=== PATIENT | male | born 1990 | race Caucasian/White ===

== ENCOUNTER 2022-11-12 00:28 | Emergency (ER) | payer OTHER ==
--- OUTSIDE RECORDS SUMMARY | 2022-11-12 00:33 | XMS REPORT | Continuity of Care Document ---
:1990 Author Organization [facility] t Address [address] [place] [address] [place] [id number] Care Team Providers Name Role Phone [email or web address] Attending Clinician Unavailable TXO_A_Physician Attending Clinician Unavailable Bryce Butler Attending Clinician [phone] [email or web address] Admitting Clinician Unavailable TXO_A_Physician Admitting Clinician Unavailable Payers Payer Name Policy Type Policy Number Effective Date Expiration Date Goldie mcintyre [employer] (EPO) [id number] 2021 2023 00:00:0 0 00:00:00 Problems This patient has no known problems. Allergies, Adverse Reactions, Alerts Allergy Allergy Status Severity Reaction(s) Onset Inactive Treating Comm ents Source Name Type Date Date Clinician Diflupre Allergy Active [facility] dn[facility] to Medical substanc e Hydroxyc Allergy Active [facility] hloroqui to Medical ne substanc e Social History Smoking Status Start Date Stop Date Source Never Smoker [facility] Medications Ordered Filled Start Stop Current Ordering Indication Dosage Frequency Signature Comments Components Source Medication Medication Date Date Medication? Clinician (SIG) Name Name naproxen naproxen 2021-04 No naproxen A zale[facility] 500 mg 500 mg 0-24 500 mg [facility] tablet 1 tablet 1 00:00: tablet 1 d ic TAB PO BID TAB PO BID 00 TAB PO BID Sports PRN PRN PRN Medicin e meloxicam meloxicam No meloxicam [place] 15 mg 15 mg 6-20 15 mg [facility] tablet 1 tablet 1 00:00: tablet 1 d ic TAB PO TAB PO 00 TAB PO Sports QDAILY PRN QDAILY PRN QDAILY PRN Medicin PAIN PAIN PAIN e ketoconazol ketoconazol No ketoconazo [facility] e 2 % e 2 % le 2 % Medical shampoo shampoo shampoo LATHER ONTO LATHER ONTO LATHER AFFECTED AFFECTED ONTO AREAS ON AREAS ON AFFECTED SCALP 3-5 SCALP 3-5 AREAS ON TIMES TIMES SCALP 3-5 WEEKLY, LET WEEKLY, LET TIMES SIT FOR 5 SIT FOR 5 WEEKLY, MINUTES MINUTES LET SIT BEFORE BEFORE FOR 5 RINSING, RINSING, MINUTES FOLLOWED BY FOLLOWED BY BEFORE CONDITIONER CONDITIONER RINSING, IF NEEDED. IF NEEDED. FOLLOWED BY CONDITIONE R IF NEEDED. ketoconazol ketoconazol No ketoconazo [facility] e 2 % e 2 % le 2 % Medical topical topical topical cream APPLY cream APPLY cream TWICE DAILY TWICE DAILY APPLY TO FLAKY, TO FLAKY, TWICE ITCHY AREAS ITCHY AREAS DAILY TO ON FACE AND ON FACE AND FLAKY, EARS FOR 1 EARS FOR 1 ITCHY MONTH OR MONTH OR AREAS ON UNTIL UNTIL FACE AND RESOLVED. RESOLVED. EARS FOR 1 MONTH OR UNTIL RESOLVED. naproxen naproxen No naproxen [place] via 500 mg 500 mg 500 mg Medical tablet TAKE tablet TAKE tablet ONE (1) ONE (1) TAKE ONE TABLET(S) TABLET(S) (1) BY MOUTH BY MOUTH TABLET(S) TWICE A DAY TWICE A DAY BY MOUTH NEEDED. NEEDED. TWICE A DAY NEEDED. sertraline sertraline No sertraline [facility] 100 mg 100 mg 100 mg Medical tablet TAKE tablet TAKE tablet ONE (1) ONE (1) TAKE ONE TABLET(S) TABLET(S) (1) BY MOUTH BY MOUTH TABLET(S) DAILY IN DAILY IN BY MOUTH THE THE DAILY IN MORNING. MORNING. THE MORNING. trazodone trazodone No trazodone [facility] 50 mg 50 mg 50 mg Medical tablet TAKE tablet TAKE tablet 1/2 TO 2 1/2 TO 2 TAKE 1/2 TABLET BY TABLET BY TO 2 MOUTH EVERY MOUTH EVERY TABLET BY NIGHT NIGHT MOUTH NEEDED FOR NEEDED FOR EVERY INSOMNIA. INSOMNIA. NIGHT NEEDED FOR INSOMNIA. ergocalcife ergocalcife No ergocalcif [facility] (vitamin (vitamin (vitamin D2) 1,250 D2) 1,250 D2) 1,250 mcg (50,000 mcg (50,000 mcg unit) unit) (50,000 capsule capsule unit) TAKE 1 TAKE 1 capsule CAPSULE CAPSULE TAKE 1 (1.25 MG) (1.25 MG) CAPSULE BY MOUTH BY MOUTH (1.25 MG) TWICE A TWICE A BY MOUTH WEEK, ON WEEK, ON TWICE A MONDAYS AND MONDAYS AND WEEK, ON FRIDAYS X FRIDAYS X MONDAYS 12 WEEKS 12 WEEKS AND FRIDAYS X 12 WEEKS gabapentin gabapentin No gabapentin [facility] 100 mg 100 mg 100 mg Medical capsule capsule capsule TAKE ONE TAKE ONE TAKE ONE (1) (1) (1) CAPSULE(S) CAPSULE(S) CAPSULE(S) BY MOUTH AT BY MOUTH AT BY MOUTH BEDTIME. BEDTIME. AT BEDTIME. ketoconazol ketoconazol No ketoconazo [facility] e 2 % e 2 % le 2 % Medical shampoo shampoo shampoo LATHER ONTO LATHER ONTO LATHER AFFECTED AFFECTED ONTO AREAS ON AREAS ON AFFECTED SCALP 3-5 SCALP 3-5 AREAS ON TIMES TIMES SCALP 3-5 WEEKLY, LET WEEKLY, LET TIMES SIT FOR 5 SIT FOR 5 WEEKLY, MINUTES MINUTES LET SIT BEFORE BEFORE FOR 5 RINSING, RINSING, MINUTES FOLLOWED BY FOLLOWED BY BEFORE CONDITIONER CONDITIONER RINSING, IF NEEDED. IF NEEDED. FOLLOWED BY CONDITIONE R IF NEEDED. ketoconazol ketoconazol No ketoconazo [facility] e 2 % e 2 % le 2 % Medical topical topical topical cream APPLY cream APPLY cream TWICE DAILY TWICE DAILY APPLY TO FLAKY, TO FLAKY, TWICE ITCHY AREAS ITCHY AREAS DAILY TO ON FACE AND ON FACE AND FLAKY, EARS FOR 1 EARS FOR 1 ITCHY MONTH OR MONTH OR AREAS ON UNTIL UNTIL FACE AND RESOLVED. RESOLVED. EARS FOR 1 MONTH OR UNTIL RESOLVED. naproxen naproxen No naproxen [place] via 500 mg 500 mg 500 mg Medical tablet 1 tablet 1 tablet 1 TAB PO BID TAB PO BID TAB PO BID PRN PRN PRN sertraline sertraline No sertraline [facility] 50 mg 50 mg 50 mg Medical tablet TAKE tablet TAKE tablet ONE (1) ONE (1) TAKE ONE TABLET(S) TABLET(S) (1) BY MOUTH BY MOUTH TABLET(S) ONCE A DAY ONCE A DAY BY MOUTH (IN THE (IN THE ONCE A DAY MORNING) MORNING) (IN THE FOR 2 FOR 2 MORNING) WEEKS, THEN WEEKS, THEN FOR 2 TWO (2) TWO (2) WEEKS, TABLET(S) TABLET(S) THEN TWO ONCE A DAY ONCE A DAY (2) (IN THE (IN THE TABLET(S) MORNING). MORNING). ONCE A DAY (IN THE MORNING). bupropion bupropion No bupropion [facility] HCl XL 150 HCl XL 150 HCl XL 150 Medical mg 24 hr mg 24 hr mg 24 hr tablet, tablet, tablet, extended extended extended release release release TAKE ONE TAKE ONE TAKE ONE (1) (1) (1) TABLET(S) TABLET(S) TABLET(S) BY MOUTH BY MOUTH BY MOUTH ONCE A DAY ONCE A DAY ONCE A DAY IN THE IN THE IN THE MORNING. MORNING. MORNING. cefuroxime cefuroxime No 1 Q12H cefuroxime [facility] axetil 500 axetil 500 axetil 500 Medical mg tablet mg tablet mg tablet Take 1 Take 1 Take 1 tablet tablet tablet every 12 every 12 every 12 hours by hours by hours by oral route. oral route. oral route. clobetasol clobetasol No clobetasol [facility] 0.05 % 0.05 % 0.05 % Medical shampoo shampoo shampoo APPLY APPLY APPLY TOPICALLY TOPICALLY TOPICALLY ONCE A DAY ONCE A DAY ONCE A DAY FOR 5 DAYS FOR 5 DAYS FOR 5 DAYS duloxetine duloxetine No duloxetine [facility] 20 mg 20 mg 20 mg Medical capsule,del capsule,del capsule,de ayed ayed layed release release release TAKE 1 TAKE 1 TAKE 1 CAPSULE BY CAPSULE BY CAPSULE BY MOUTH EVERY MOUTH EVERY MOUTH DAY FOR 2 DAY FOR 2 EVERY DAY WEEKS THEN WEEKS THEN FOR 2 TAKE 2 TAKE 2 WEEKS THEN CAPSULES CAPSULES TAKE 2 DAILY DAILY CAPSULES DAILY duloxetine duloxetine No duloxetine [facility] 60 mg 60 mg 60 mg Medical capsule,del capsule,del capsule,de ayed ayed layed release release release TAKE ONE TAKE ONE TAKE ONE (1) (1) (1) CAPSULE(S) CAPSULE(S) CAPSULE(S) BY MOUTH BY MOUTH BY MOUTH ONCE A DAY. ONCE A DAY. ONCE A DAY. ergocalcife ergocalcife No ergocalcif [facility] (vitamin (vitamin (vitamin D2) 1,250 D2) 1,250 D2) 1,250 mcg (50,000 mcg (50,000 mcg unit) unit) (50,000 capsule capsule unit) TAKE 1 TAKE 1 capsule CAPSULE CAPSULE TAKE 1 (1.25 MG) (1.25 MG) CAPSULE BY MOUTH BY MOUTH (1.25 MG) TWICE A TWICE A BY MOUTH WEEK, ON , ON TWICE A MONDAYS AND MONDAYS AND WEEK, ON FRIDAYS X FRIDAYS X MONDAYS 12 WEEKS 12 WEEKS AND FRIDAYS X WEEKS famotidine famotidine No famotidine [facility] 40 mg 40 mg 40 mg Medical tablet TAKE tablet TAKE tablet 1 TABLET BY 1 TABLET BY TAKE 1 MOUTH MOUTH TABLET BY EVERYDAY AT EVERYDAY AT MOUTH BEDTIME BEDTIME EVERYDAY AT BEDTIME gabapentin gabapentin No gabapentin [facility] 100 mg 100 mg 100 mg Medical capsule capsule capsule PLEASE SEE PLEASE SEE PLEASE SEE ATTACHED ATTACHED ATTACHED FOR FOR FOR DETAILED DETAILED DETAILED DIRECTIONS DIRECTIONS DIRECTIONS hydroxychlo hydroxychlo No hydroxychl [facility] roquine 200 roquine 200 oroquine Medical mg tablet mg tablet 200 mg TAKE 1/2 A TAKE 1/2 A tablet TABLET TABLET TAKE 1/2 A DAILY FOR 1 DAILY FOR 1 TABLET WEEK, THEN WEEK, THEN DAILY FOR 1 TABLET 1 TABLET 1 WEEK, DAILY FOR 1 DAILY FOR 1 THEN 1 WEEK, THEN WEEK, THEN TABLET 1 TABLET 1 TABLET DAILY FOR TWICE DAILY TWICE DAILY 1 WEEK, THEN 1 TABLET TWICE DAILY hydroxyzine hydroxyzine No hydroxyzin [facility] HCl 25 mg HCl 25 mg e HCl 25 M edical tablet TAKE tablet TAKE mg tablet 1 TABLET BY 1 TABLET BY TAKE 1 ORAL ROUTE ORAL ROUTE TABLET BY EVERY 8 EVERY 8 ORAL ROUTE HOURS HOURS EVERY 8 NEEDED FOR NEEDED FOR HOURS ITCHING ITCHING NEEDED FOR ITCHING ketoconazol ketoconazol No ketoconazo [facility] e 2 % e 2 % le 2 % Medical shampoo shampoo shampoo APPLY 5 MLS APPLY 5 MLS APPLY 5 TO SCALP TO SCALP MLS TO DIRECTED, DIRECTED, SCALP LEAVE ON LEAVE ON DIRECTED, FOR 5 FOR 5 LEAVE ON MINUTES AND MINUTES AND FOR 5 RINSE, UASE RINSE, UASE MINUTES TWICE A TWICE A AND RINSE, WEEK WEEK UASE TWICE A WEEK meloxicam meloxicam No meloxicam [facility] 15 mg 15 mg 15 mg Medical tablet 1 tablet 1 tablet 1 TAB PO TAB PO TAB PO QDAILY PRN QDAILY PRN QDAILY PRN PAIN PAIN PAIN ondansetron ondansetron No ondansetro [facility] 4 mg 4 mg n 4 mg Medical disintegrat disintegrat disintegra ing tablet ing tablet ting DISOLVE 1 DISOLVE 1 tablet TABLET (4 TABLET (4 DISOLVE 1 MG TOTAL) MG TOTAL) TABLET (4 IN MOUTH IN MOUTH MG TOTAL) EVERY 6 EVERY 6 IN MOUTH (SIX) HOURS (SIX) HOURS EVERY 6 NEEDED NEEDED (SIX) FOR NAUSEA FOR NAUSEA HOURS OR VOMITING OR VOMITING NEEDED FOR NAUSEA OR VOMITING bupropion bupropion No bupropion [facility] HCl XL 300 HCl XL 300 HCl XL 300 Medical mg 24 hr mg 24 hr mg 24 hr tablet, tablet, tablet, extended extended extended release release release TAKE 1 ONCE TAKE 1 ONCE TAKE 1 A DAY (IN A DAY (IN ONCE A DAY THE THE (IN THE MORNING) MORNING) MORNING) duloxetine duloxetine No duloxetine [facility] 60 mg 60 mg 60 mg Medical capsule,del capsule,del capsule,de ayed ayed layed release release release TAKE ONE TAKE ONE TAKE ONE (1) (1) (1) CAPSULE(S) CAPSULE(S) CAPSULE(S) BY MOUTH BY MOUTH BY MOUTH ONCE A DAY. ONCE A DAY. ONCE A DAY. ergocalcife ergocalcife No ergocalcif [facility] (vitamin (vitamin (vitamin D2) 1,250 D2) 1,250 D2) 1,250 mcg (50,000 mcg (50,000 mcg unit) unit) (50,000 capsule capsule unit) TAKE 1 TAKE 1 capsule CAPSULE CAPSULE TAKE 1 (1.25 MG) (1.25 MG) CAPSULE BY MOUTH BY MOUTH (1.25 MG) TWICE A TWICE A BY MOUTH WEEK, ON , ON A MONDAYS AND MONDAYS AND WEEK, ON FRIDAYS X FRIDAYS X MONDAYS 12 WEEKS 12 WEEKS AND FRIDAYS X 12 WEEKS indomethaci indomethaci No indomethac [facility] n ER 75 mg n ER 75 mg in ER 75 Medical capsule,ext capsule,ext mg ended ended capsule,ex release 1 release 1 tended CAPSULE PO CAPSULE PO release 1 BID PRN BID PRN CAPSULE PO BID PRN meloxicam meloxicam No meloxicam [facility] 15 mg 15 mg 15 mg Medical tablet 1 tablet 1 tablet 1 TAB PO TAB PO TAB PO QDAILY PRN QDAILY PRN QDAILY PRN PAIN PAIN PAIN bupropion bupropion No bupropion [facility] HCl XL 150 HCl XL 150 HCl XL 150 Medical mg 24 hr mg 24 hr mg 24 hr tablet, tablet, tablet, extended extended extended release release release TAKE ONE TAKE ONE TAKE ONE (1) (1) (1) TABLET(S) TABLET(S) TABLET(S) BY MOUTH BY MOUTH BY MOUTH DAILY IN DAILY IN DAILY IN THE THE THE MORNING. MORNING. MORNING. ergocalcife ergocalcife No ergocalcif [facility] riley de diosol [facility] (vitamin (vitamin (vitamin D2) 1,250 D2) 1,250 D2) 1,250 mcg (50,000 mcg (50,000 mcg unit) unit) (50,000 capsule capsule unit) TAKE 1 TAKE 1 capsule CAPSULE CAPSULE TAKE 1 (1.25 MG) (1.25 MG) CAPSULE BY MOUTH BY MOUTH (1.25 MG) TWICE A TWICE A BY MOUTH WEEK, ON , ON TWICE A MONDAYS AND MONDAYS AND WEEK, ON FRIDAYS X FRIDAYS X MONDAYS 12 WEEKS 12 WEEKS AND FRIDAYS X WEEKS gabapentin gabapentin No gabapentin [facility] 100 mg 100 mg 100 mg Medical capsule capsule capsule TAKE ONE TAKE ONE TAKE ONE (1) (1) (1) CAPSULE(S) CAPSULE(S) CAPSULE(S) BY MOUTH AT BY MOUTH AT BY MOUTH BEDTIME. BEDTIME. AT BEDTIME. ketoconazol ketoconazol No ketoconazo [facility] e 2 % e 2 % le 2 % Medical shampoo shampoo shampoo LATHER ONTO LATHER ONTO LATHER AFFECTED AFFECTED ONTO AREAS ON AREAS ON AFFECTED SCALP 3-5 SCALP 3-5 AREAS ON TIMES TIMES SCALP 3-5 WEEKLY, LET WEEKLY, LET TIMES SIT FOR 5 SIT FOR 5 WEEKLY, MINUTES MINUTES LET SIT BEFORE BEFORE FOR 5 RINSING, RINSING, MINUTES FOLLOWED BY FOLLOWED BY BEFORE CONDITIONER CONDITIONER RINSING, IF NEEDED. IF NEEDED. FOLLOWED BY CONDITIONE R IF NEEDED. ketoconazol ketoconazol No ketoconazo [facility] e 2 % e 2 % le 2 % Medical topical topical topical cream APPLY cream APPLY cream TWICE DAILY TWICE DAILY APPLY TO FLAKY, TO FLAKY, TWICE ITCHY AREAS ITCHY AREAS DAILY TO ON FACE AND ON FACE AND FLAKY, EARS FOR 1 EARS FOR 1 ITCHY MONTH OR MONTH OR AREAS ON UNTIL UNTIL FACE AND RESOLVED. RESOLVED. EARS FOR 1 MONTH OR UNTIL RESOLVED. naproxen naproxen No naproxen [place] via 500 mg 500 mg 500 mg Medical tablet TAKE tablet TAKE tablet ONE (1) ONE (1) TAKE ONE TABLET(S) TABLET(S) (1) BY MOUTH BY MOUTH TABLET(S) TWICE A DAY TWICE A DAY BY MOUTH NEEDED. NEEDED. TWICE A DAY NEEDED. sertraline sertraline No sertraline [facility] 100 mg 100 mg 100 mg Medical tablet TAKE tablet TAKE tablet ONE (1) ONE (1) TAKE ONE TABLET(S) TABLET(S) (1) BY MOUTH BY MOUTH TABLET(S) DAILY IN DAILY IN BY MOUTH THE THE DAILY IN MORNING. MORNING. THE MORNING. bupropion bupropion No bupropion [place] HCl XL 300 HCl XL 300 HCl XL 300 [facility] mg 24 hr mg 24 hr mg 24 hr dic tablet, tablet, tablet, Sports extended extended extended Med icin release release release e TAKE 1 ONCE TAKE 1 ONCE TAKE 1 A DAY (IN A DAY (IN ONCE A DAY THE THE (IN THE MORNING) MORNING) MORNING) cefuroxime cefuroxime No cefuroxime [place] axetil 500 axetil 500 axetil 500 [facility] mg tablet mg tablet mg tablet dic TAKE ONE TAKE ONE TAKE ONE Spo rts (1) TABLET (1) TABLET (1) TABLET Medicin BY MOUTH BY MOUTH BY MOUTH e EVERY 12 EVERY 12 EVERY 12 HOURS. HOURS. HOURS. duloxetine duloxetine No duloxetine [place] 60 mg 60 mg 60 mg [facility] capsule,del capsule,del capsule,de dic ayed ayed layed Sports release release release Medici n TAKE ONE TAKE ONE TAKE ONE e (1) (1) (1) CAPSULE(S) CAPSULE(S) CAPSULE(S) BY MOUTH BY MOUTH BY MOUTH ONCE A DAY. ONCE A DAY. ONCE A DAY. ergocalcife ergocalcife No ergocalcif [place] rol rol lana [facility] (vitamin (vitamin (vitamin dic D2) 1,250 D2) 1,250 D2) 1,250 Sports mcg (50,000 mcg (50,000 mcg M edicin unit) unit) (50,000 e capsule capsule unit) TAKE 1 TAKE 1 capsule CAPSULE CAPSULE TAKE 1 (1.25 MG) (1.25 MG) CAPSULE BY MOUTH BY MOUTH (1.25 MG) TWICE A TWICE A BY MOUTH WEEK, ON WEEK, ON TWICE A MONDAYS AND MONDAYS AND WEEK, ON FRIDAYS X FRIDAYS X MONDAYS 12 WEEKS 12 WEEKS AND FRIDAYS X 12 WEEKS gabapentin gabapentin No gabapentin [place] 100 mg 100 mg 100 mg [facility] capsule capsule capsule dic TAKE ONE TAKE ONE TAKE ONE Spo rts (1) (1) (1) Medicin CAPSULE(S) CAPSULE(S) CAPSULE(S) e BY MOUTH AT BY MOUTH AT BY MOUTH BEDTIME. BEDTIME. AT BEDTIME. indomethaci indomethaci No indomethac [place] n ER 75 mg n ER 75 mg in ER 75 [facility] capsule,ext capsule,ext mg d ic ended ended capsule,ex Sports release release tended Medicin Take by Take by release e oral route oral route Take by for 30 for 30 oral route days. days. for 30 days. ketoconazol ketoconazol No ketoconazo [place] e 2 % e 2 % le 2 % [facility] shampoo shampoo shampoo dic LATHER ONTO LATHER ONTO LATHER Sports AFFECTED AFFECTED ONTO Medicin AREAS ON AREAS ON AFFECTED e SCALP 3-5 SCALP 3-5 AREAS ON TIMES TIMES SCALP 3-5 WEEKLY, LET WEEKLY, LET TIMES SIT FOR 5 SIT FOR 5 WEEKLY, MINUTES MINUTES LET SIT BEFORE BEFORE FOR 5 RINSING, RINSING, MINUTES FOLLOWED BY FOLLOWED BY BEFORE CONDITIONER CONDITIONER RINSING, IF NEEDED. IF NEEDED. FOLLOWED BY CONDITIONE R IF NEEDED. ketoconazol ketoconazol No ketoconazo [place] e 2 % e 2 % le 2 % [facility] topical topical topical dic cream APPLY cream APPLY cream Sports TWICE DAILY TWICE DAILY APPLY Medicin TO FLAKY, TO FLAKY, TWICE e ITCHY AREAS ITCHY AREAS DAILY TO ON FACE AND ON FACE AND FLAKY, EARS FOR 1 EARS FOR 1 ITCHY MONTH OR MONTH OR AREAS ON UNTIL UNTIL FACE AND RESOLVED. RESOLVED. EARS FOR 1 MONTH OR UNTIL RESOLVED. piroxicam piroxicam No piroxicam [place] 20 mg 20 mg 20 mg [facility] capsule capsule capsule dic TAKE ONE TAKE ONE TAKE ONE Spo rts (1) (1) (1) Medicin CAPSULE(S) CAPSULE(S) CAPSULE(S) e BY MOUTH BY MOUTH BY MOUTH DAILY DAILY DAILY NEEDED. NEEDED. NEEDED. sertraline sertraline No sertraline [place] 50 mg 50 mg 50 mg [facility] tablet TAKE tablet TAKE tablet dic ONE (1) ONE (1) TAKE ONE Sport s TABLET(S) TABLET(S) (1) Medic in BY MOUTH BY MOUTH TABLET(S) e ONCE A DAY ONCE A DAY BY MOUTH (IN THE (IN THE ONCE A DAY MORNING) MORNING) (IN THE FOR 2 FOR 2 MORNING) WEEKS, THEN WEEKS, THEN FOR 2 TWO (2) TWO (2) WEEKS, TABLET(S) TABLET(S) THEN TWO ONCE A DAY ONCE A DAY (2) (IN THE (IN THE TABLET(S) MORNING). MORNING). ONCE A DAY (IN THE MORNING). sertraline sertraline No sertraline [facility] 50 mg 50 mg 50 mg Medical tablet TAKE tablet TAKE tablet ONE (1) ONE (1) TAKE ONE TABLET(S) TABLET(S) (1) BY MOUTH BY MOUTH TABLET(S) ONCE A DAY ONCE A DAY BY MOUTH (IN THE (IN THE ONCE A DAY MORNING) MORNING) (IN THE FOR 2 FOR 2 MORNING) WEEKS, THEN WEEKS, THEN FOR 2 TWO (2) TWO (2) WEEKS, TABLET(S) TABLET(S) THEN TWO ONCE A DAY ONCE A DAY (2) (IN THE (IN THE TABLET(S) MORNING). MORNING). ONCE A DAY (IN THE MORNING). amitriptyli amitriptyli No 1 Q1D amitriptyl [facility] ne 10 mg ne 10 mg ine 10 mg Me dical tablet Take tablet Take tablet 1 tablet 1 tablet Take 1 every day every day tablet by oral by oral every day route at route at by oral bedtime for bedtime for route at 30 days. 30 days. bedtime for 30 days. bupropion bupropion No bupropion [facility] HCl XL 150 HCl XL 150 HCl XL 150 Medical mg 24 hr mg 24 hr mg 24 hr tablet, tablet, tablet, extended extended extended release release release TAKE ONE TAKE ONE TAKE ONE (1) (1) (1) TABLET(S) TABLET(S) TABLET(S) BY MOUTH BY MOUTH BY MOUTH DAILY IN DAILY IN DAILY IN THE THE THE MORNING. MORNING. MORNING. celecoxib celecoxib No celecoxib [facility] 200 mg 200 mg 200 mg Medical capsule capsule capsule TAKE ONE TAKE ONE TAKE ONE (1) (1) (1) CAPSULE(S) CAPSULE(S) CAPSULE(S) BY MOUTH BY MOUTH BY MOUTH TWICE A DAY TWICE A DAY TWICE A NEEDED. NEEDED. DAY NEEDED. ergocalcife ergocalcife No ergocalcif [facility] (vitamin (vitamin (vitamin D2) 1,250 D2) 1,250 D2) 1,250 mcg (50,000 mcg (50,000 mcg unit) unit) (50,000 capsule capsule unit) TAKE 1 TAKE 1 capsule CAPSULE CAPSULE TAKE 1 (1.25 MG) (1.25 MG) CAPSULE BY MOUTH BY MOUTH (1.25 MG) TWICE A TWICE A BY MOUTH WEEK, ON WEEK, ON TWICE A MONDAYS AND MONDAYS AND WEEK, ON FRIDAYS X FRIDAYS X MONDAYS 12 WEEKS 12 WEEKS AND FRIDAYS X 12 WEEKS Immunizations Ordered Filled Immunization Date Status Comments [facility] e Immunization Name Name COVID-19, mRNA, COVID-19, mRNA, 2020-08-10 Completed [facility] LNP-S, PF, 30 LNP-S, PF, 30 00:00:00 mcg/0.3 mL dose mcg/0.3 mL dose (Pfizer-BioNTech) (NXE-Easy-PointNTech) COVID-19, mRNA, COVID-19, mRNA, 2020-08-10 Completed [facility] LNP-S, PF, 30 LNP-S, PF, 30 00:00:00 mcg/0.3 mL dose mcg/0.3 mL dose (Pfizer-BioNTech) (NXE-BioNTech) COVID-19, mRNA, COVID-19, mRNA, 2020-08-10 Completed [facility] LNP-S, PF, 30 LNP-S, PF, 30 00:00:00 mcg/0.3 mL dose mcg/0.3 mL dose (Pfizer-BioNTech) (NXE-BioNTech) COVID-19, mRNA, COVID-19, mRNA, 2020-08-10 Completed [facility] LNP-S, PF, 30 LNP-S, PF, 30 00:00:00 mcg/0.3 mL dose mcg/0.3 mL dose (Pfizer-BioNTech) (NXE-BioNTech) COVID-19, mRNA, COVID-19, mRNA, 2020-08-10 Completed [facility] LNP-S, PF, 30 LNP-S, PF, 30 00:00:00 mcg/0.3 mL dose mcg/0.3 mL dose (Pfizer-BioNTech) (NXE-BioNTech) COVID-19, mRNA, COVID-19, mRNA, 2020-08-10 Completed [facility] LNP-S, PF, 30 LNP-S, PF, 30 00:00:00 Sports M edicine mcg/0.3 mL dose mcg/0.3 mL dose (Pfizer-BioNTech) (Pfizer-BioNTech) COVID-19, mRNA, COVID-19, mRNA, 2020-07-13 Completed [facility] LNP-S, PF, 30 LNP-S, PF, 30 00:00:00 mcg/0.3 mL dose mcg/0.3 mL dose (Pfizer-BioNTech) (Pfizer-BioNTech) COVID-19, mRNA, COVID-19, mRNA, 2020-07-13 Completed [facility] LNP-S, PF, 30 LNP-S, PF, 30 00:00:00 mcg/0.3 mL dose mcg/0.3 mL dose (Pfizer-BioNTech) (Pfizer-BioNTech) COVID-19, mRNA, COVID-19, mRNA, 2020-07-13 Completed [facility] LNP-S, PF, 30 LNP-S, PF, 30 00:00:00 mcg/0.3 mL dose mcg/0.3 mL dose (Pfizer-BioNTech) (Pfizer-BioNTech) COVID-19, mRNA, COVID-19, mRNA, 2020-07-13 Completed [facility] LNP-S, PF, 30 LNP-S, PF, 30 00:00:00 mcg/0.3 mL dose mcg/0.3 mL dose (Pfizer-BioNTech) (Pfizer-BioNTech) COVID-19, mRNA, COVID-19, mRNA, 2020-07-13 Completed [facility] LNP-S, PF, 30 LNP-S, PF, 30 00:00:00 mcg/0.3 mL dose mcg/0.3 mL dose (Pfizer-BioNTech) (Pfizer-BioNTech) COVID-19, mRNA, COVID-19, mRNA, 2020-07-13 Completed [facility] LNP-S, PF, 30 LNP-S, PF, 30 00:00:00 Sports M edicine mcg/0.3 mL dose mcg/0.3 mL dose (Pfizer-BioNTech) (Pfizer-BioNTech) Vital Signs Vital Name Observation Time Observation Value Comments Source BP Diastolic 2022-05-01 00:00:00 78 mm[Hg] [facility] Height 2022-05-01 00:00:00 66 [in_i] [facility] BMI (Body Mass 2022-05-01 00:00:00 43[facility]7 [facility] BP Systolic 2022-05-01 00:00:00 128 mm[Hg] [facility] Body Weight 2022-05-01 00:00:00 4336 [oz_av] [facility] BP Diastolic 2022-04-09 00:00:00 78 mm[Hg] [facility] Height 2022-04-09 00:00:00 66 [in_i] [facility] BMI (Body Mass 2022-04-09 00:00:00 43.3 kg/m2 [facility] BP Systolic 2022-04-09 00:00:00 124 mm[Hg] [facility] Body Weight 2022-04-09 00:00:00 4288 [oz_av] [facility] BP Diastolic 2022-02-25 00:00:00 91 mm[Hg] [facility] Height 2022-02-25 00:00:00 67 [in_i] [facility] BP Systolic 2022-02-25 00:00:00 125 mm[Hg] [facility] BP Diastolic 2022-01-27 00:00:00 82 mm[Hg] [facility] Height 2022-01-27 00:00:00 66 [in_i] [facility] BMI (Body Mass 2022-01-27 00:00:00 44.2 kg/m2 [facility] BP Systolic 2022-01-27 00:00:00 128 mm[Hg] [facility] Body Weight 2022-01-27 00:00:00 4384 [oz_av] [facility] BP Diastolic 2021-11-28 00:00:00 88 mm[Hg] [facility] Height 2021-11-28 00:00:00 66 [in_i] [facility] BMI (Body Mass 2021-11-28 00:00:00 44.1 kg/m2 [facility] BP Systolic 2021-11-28 00:00:00 132 mm[Hg] [facility] Body Weight 2021-11-28 00:00:00 4368 [oz_av] [facility] BP Diastolic 2021-09-23 00:00:00 82 mm[Hg] Becky Mcdonald edical Height 2021-09-23 00:00:00 66 [in_i] Becky Mcdonald edical BMI (Body Mass 2021-09-23 00:00:00 42.4 kg/m2 [facility] Medical Index) BP Systolic 2021-09-23 00:00:00 140 mm[Hg] Becky Mcdonald edical Body Weight 2021-09-23 00:00:00 4208 [oz_av] Becky Mcdonald edical Procedures This patient has no known procedures. Plan of Care Planned Activity Planned Date Details Comments Source Diagnostic Test 2022-02-25 [place] [facility] + expediter service order Ab, [facility] Pending 00:00:00 serum [code = [place] [facility] + expediter service order Ab, serum] Diagnostic Test 2022-02-25 [place] [facility], serum [code [facility] 00:[facility]:00 = [place] [facility], serum] [facility] Diagnostic Test 2022-02-25 VIKTOR (antinuclear [facility] 00:00:00 antibodies) screen, [facility] serum [code = [facility] (antinuclear antibodies) screen, serum] Diagnostic Test 2022-02-25 dsDNA Ab, serum [code [facility] 00:00:00 = dsDNA Ab, serum] Sports Me d[facility] Diagnostic Test 2022-02-25 C3 + C4 (complement), [facility] 00:00:00 serum [code = C3 + C4 [facility] (complement), serum] Diagnostic Test 2022-02-25 ssa Ab, serum [code = [facility] 00:00:00 [facility]sa Ab, serum] Sports Medici ne Diagnostic Test 2022-02-25 ESR (erythrocyte [facility] 00:00:00 sedimentation rate), Sports Medicine blood [code = ESR (erythrocyte sedimentation rate), blood] Diagnostic Test 2022-02-25 C-reactive protein, [facility] P[facility] 00:00:00 quantitative [code = Sports Medicine C-reactive protein, quantitative] Diagnostic Test 2022-02-25 CMP, serum or plasma [facility] Pending 00:00:00 [code = CMP, serum or Sports Medicine plasma] Diagnostic Test 2022-02-25 CBC w/ auto diff [code [facility] Pending 00:00:00 = CBC w/ auto diff] Sports M edicine Diagnostic Test 2022-02-25 rf (rheumatoid [place] [facility] Pending 00:00:00 factor), serum [code = Sport s Medicine rf (rheumatoid factor), serum] Diagnostic Test 2022-02-25 ccp (cyclic [place] [facility] Pending 00:00:00 citrullinated peptide) Sport s Medicine igg, serum [code = ccp (cyclic citrullinated peptide) igg, serum] Encounters Start End Encounter Admission Attending Care Care Encounter Source Date/Time Date/Time Type Type Clinicians Facility Department ID 2022-05-16 2022-05-16 Outpatient GC_SM_Pol [facility] PRIV [id number] [facility] 00:00:00 00:00:00 son_D [id number] Medica l 2022-05-01 2022-05-01 [facility] 00:00:00 00:00:00 Tanesha Butler Medic luz maria TORREZ: 160[address] [facility]_[place] [id number] Office , Ph. 2022-04-09 2022-04-09 [facility] 04 [facility] 00:00:00 00:00:00 Tanesha Butler MD: 160Andrés [facility] [id number] 123 Office , Ph. 2022-03-19 2022-03-19 Outpatient TXO_A_Physi AOSM AO [id number] [place] 00:00:00 00:00:00 ophelia [id number] Orthop e dic Sports Medicin e 2022-02-25 2022-02-25 Outpatient TXO_A_Physi AOSM AOSM [id number] [place] 00:00:00 00:00:00 ophelia [id number] Orthop e dic Sports Medicin e 2022-02-25 2022-02-25 Edis R AOSM [place] - Ortho [id number] [place] 00:00:00 00:00:00 Kimberli Rivas MD: [id number] [facility] [address], [place] [address] , Ph. [phone] 2022-02-07 2022-02-07 Outpatient GC_SMFM_Pol PRIV PRIV [id number] [facility] 00:00:00 00:00:00 son_D [id number] Medica l 2022-02-07 2022-02-07 Outpatient GC_SMFM_Pol PRIV PRIV [id number] [facility] 00:00:00 00:00:00 son_D [id number] Medica l 2022-02-07 2022-02-07 Outpatient GC_SMFM_Pol PRIV PRIV [id number] [facility] 00:00:00 00:00:00 son_D [id number] Medica l 2022-01-28 2022-01-28 Outpatient TXO_A_Physi AOSM AO [id number] [place] 00:00:00 00:00:00 ophelia [id number] Orthop e dic Sports Medicin e 2022-01-27 2022-01-27 Outpatient GC_SMFM_Pol PRIV PRIV [id number] [facility] 00:00:00 00:00:00 son_D [id number] Medica l 2022-01-27 2022-01-27 [facility] 24 [facility] 00:00:00 00:00:00 Tanesha Butler Manasa loera MD: [id number] GC_SMFM_[facility] [phone] [facility] Office , Ph. 2022-01-17 2022-01-17 Outpatient GC_SMFM_Pol PRIV PRIV [id number] [facility] 00:00:00 00:00:00 son_D [id number] Medica l 2021-12-21 2021-12-21 Outpatient GC_SMFM_Pol PRIV PRIV [id number] [facility] 00:00:00 00:00:00 son_D [id number] Medica l 2021-11-28 2021-11-28 Outpatient GC_SMFM_Pol PRIV PRIV [id number] [facility] 00:00:00 00:00:00 son_D [id number] Medica l 2021-11-28 2021-11-28 Outpatient [facility], PRIV PRIV [id number] 00:00:00 00:00:00 Bryce [id number] 2021-11-28 2021-11-28 Bry[facility] 00:00:00 00:00:00 [facility] - Medic luz maria MD: [id number] GC_SMFM_[facility], Office* [address] [place] [phone] , Ph. 2021-11-01 2021-11-01 Outpatient GC_SMFM_Pol PRIV PRIV [id number] [facility] 00:00:00 00:00:00 son_D [id number] Medica l 2021-10-24 2021-10-24 Outpatient GC_SMFM_Pol PRIV PRIV [id number] [facility] 01:29:00 01:29:00 son_D [id number] Medica l 2021-09-23 2021-09-23 Outpatient GC_SMFM_Pol PRIV PRIV [id number] [facility] 03:59:00 03:59:00 son_D [id number] Medica l 2021-09-23 2021-09-23 Bryce [facility] 20 [facility] 00:00:00 00:00:00 [facility] Medic luz maria MD: [id number] GC_SMFM_[facility], Office* [address] [place] [phone] , Ph. 2021-09-23 2021-09-23 Outpatient [facility], PRIV PRIV [id number] 00:00:00 00:00:00 Bryce [id number] 2021-09-04 2021-09-04 Outpatient GC_SMFM_Pol PRIV PRIV [id number] [facility] 03:47:00 03:47:00 son_D [id number] Medica l Results This patient has no known results.
[2022-11-12] MEDS ORDERED: MORPHINE 4 MG/ML SYR ONE (03:07)
[2022-11-12] MEDS ORDERED: ONDANSETRON 4 MG/2 ML VIAL ONE (03:07)
[2022-11-12 03:25] LABS: Hematocrit 45.4 % (39.6-49.0); Lymphocytes % 17.3 % (15.3-44.8); MCV 82.3 fL (80-100); Platelets 308 thou/uL (152-406); RBC Red Blood Cell Count 5.52 M/uL (4.33-5.43)
[2022-11-12 03:34] LABS: Urine Bilirubin NEGATIVE (Negative); Urine Blood Negative (Negative); Urine Clarity Clear (Clear); Urine Color Light-Yellow (Yellow); Urine Glucose NEGATIVE (Negative); Urine Protein NEGATIVE (Negative); Urine Urobilinogen Normal (Normal)
[2022-11-12 03:37] LABS: Albumin 3.5 g/dL (3.4-5.0); Bilirubin Total 0.4 mg/dL (0.2-1.0); Potassium 3.7 mEq/L (3.5-5.1); Protein, Total 7.7 g/dL (6.4-8.2)
--- NOTE | 2022-11-12 05:25 | EDPHYS ---
Physician Documentation [facility] Name: Daryl Booth Age: 32 yrs Sex: Male : 1990 Arrival Date: 11/12/2022 Time: 00:28 Bed 13 Private MD: ED Physician Orville Tobias HPI: 11/12 01:30 This 32 yrs old Male presents to ER via Ambulatory with complaints of Abdominal Pain, cp Possible Kidney Stone. 01:30 The patient presents with abdominal pain in the left upper quadrant. Onset: The cp symptoms/episode began/occurred 4 day(s) ago, and became worse today. The symptoms do not radiate. 05:05 Patient care was assumed from physician orthopedic assistant at 3 AM. . sp4 Historical: - Allergies: 00:53 difluprednate; pf1 00:53 Hydroxychloroquine; pf1 - PMHx: 00:53 Anxiety; Depressive disorder; chronic pain; autism; pf1 00:56 kidney stone; pf1 - PSHx: 00:53 None; pf1 - Immunization history:: Adult Immunizations up to date, Client reports receiving the 2nd dose of the Covid vaccine, Last tetanus immunization: > 10 years ago Flu vaccine is not up to date. - Social history:: Smoking status: Patient denies any tobacco usage or history of. Patient uses alcohol, only on a social basis. Patient/guardian denies using street drugs. ROS: 01:35 Constitutional: Negative for body aches, chills, fever, poor PO intake. cp 01:35 Eyes: Negative for injury, pain, redness, and discharge. cp 01:35 ENT: Negative for drainage from ear(s), ear pain, sore throat, difficulty swallowing, difficulty handling secretions. 01:35 Cardiovascular: Negative for chest pain, palpitations. 01:35 Respiratory: Negative for cough, shortness of breath, wheezing. 01:35 Abdomen/GI: Positive for abdominal pain, nausea, Negative for vomiting, diarrhea, constipation, black/tarry stool, rectal bleeding. 01:35 Back: Positive for chronic pain. 01:35 : Negative for urinary symptoms, testicular pain 01:35 Skin: Negative for cellulitis, rash. 01:35 Neuro: Negative for altered mental status, dizziness, headache, weakness. 01:35 All other systems are negative. Exam: 01:40 Constitutional: The patient appears in no acute distress, alert, awake, cp non-diaphoretic, non-toxic, well developed, well nourished, obese, uncomfortable. 01:40 Head/Face: Normocephalic, atraumatic. cp 01:40 Eyes: Periorbital structures: appear normal, Conjunctiva: normal, no exudate, no injection, Sclera: no appreciated abnormality, Lids and lashes: appear normal, bilaterally. 01:40 ENT: External ear(s): are unremarkable, Nose: is normal, Mouth: Lips: moist, Oral mucosa: pink and intact, moist, Posterior pharynx: is normal, airway is patent, no erythema, no exudate. 01:40 Neck: ROM/movement: is normal, is supple, without pain, no range of motions limitations. 01:40 Chest/axilla: Inspection: normal. 01:40 Cardiovascular: Rate: normal, Rhythm: regular. 01:40 Respiratory: the patient does not display signs of respiratory distress, Respirations: normal, no use of accessory muscles, no retractions, labored breathing, is not present, Breath sounds: are clear throughout, no decreased breath sounds, no stridor, no wheezing. 01:40 Abdomen/GI: Inspection: abdomen appears normal, Bowel sounds: active, all quadrants, Palpation: soft, in all quadrants, mild abdominal tenderness, in the left upper quadrant, rebound tenderness, is not appreciated, involuntary guarding, is not appreciated. 01:40 Back: CVA tenderness, is absent. Vital Signs: 00:44 BP 132 / 83 RA Sitting (auto/reg); Pulse 87; Resp 16 S; Temp 98(O); Pulse Ox 99% on mb4 R/A; Weight 113.4 kg (R); Height 5 ft. 7 in. (R); Pain 4/10; 02:30 BP 119 / 72; Pulse 80; Resp 18 S; Pulse Ox 100% on R/A; ha1 03:20 BP 118 / 75; Pulse 82; Resp 18 S; Pulse Ox 99% on R/A; ha1 05:30 BP 120 / 70; Pulse 67; Resp 19 S; Pulse Ox 100% on R/A; ha1 00:44 Body Mass Index 39.16 (113.40 kg, 170.18 cm) mb4 00:44 Pain Scale: Adult mb4 MDM: 01:00 Patient medically screened. cp 02:00 Differential diagnosis: cholecystitis, Cholelithiasis, pancreatitis, Peptic Ulcer cp Disease, Perf. Duodenal Ulcer, Perf. Gastric Ulcer, Pyelonephritis, Ureterolithiasis, urinary tract infection. 03:00 Transition of care: After a detail discussion of the patient's case, care is cp transferred to Orville Tobias MD. 05:09 ED course: No relevant prior studies available. FINDINGS: Lung bases: Unremarkable. No sp4 mass. No consolidation. ABDOMEN: Liver: Unremarkable. Gallbladder and bile ducts: Unremarkable. No calcified stones. No ductal dilation. Pancreas: Unremarkable. No ductal dilation. Spleen: Unremarkable. No splenomegaly. Adrenals: Unremarkable. No mass. Kidneys and ureters: Punctate left renal calculus. No hydronephrosis. Stomach and bowel: There is a focus of extraluminal inflammation with central fat density abutting the distal descending colon. Moderate stool within the proximal to mid large bowel. No obstruction. No appreciable mucosal thickening. PELVIS: Appendix: Normal caliber appendix. No findings to suggest acute appendicitis. Bladder: The urinary bladder is decompressed. No stones. Reproductive: Unremarkable as visualized. ABDOMEN and PELVIS: Intraperitoneal space: Unremarkable. No free air. No significant fluid collection. Bones/joints: No acute fracture. No dislocation. Soft tissues: Unremarkable. Vasculature: Unremarkable. No abdominal aortic aneurysm. Lymph nodes: Haziness within the central mesenteric fat with multiple subcentimeter lymph nodes. IMPRESSION: 1. There is a focus of extraluminal inflammation with central fat density abutting the distal descending colon. This is consistent with acute epiploic appendagitis. 2. Nonobstructive left renal calculus. 3. Haziness within the central mesenteric fat with multiple subcentimeter lymph nodes. This is a nonspecific finding which can be seen in the setting of mesenteric panniculitis. Follow-up is suggested in order to exclude lymphatic malignancy. 4. Other findings as above. Electronically signed by. 05:22 Differential Diagnosis flu, Abdominal pain, abdominal distention, diverticulitis, sp4 colitis. Data reviewed: vital signs, nurses notes, lab test result(s), radiologic studies, CT scan. Consideration of Admission/Observation Escalation of care including admission/observation considered. ED course: Epiploic appendagitis -patient warrants Keflex and Flagyl for the 10-day course.. 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 Also repeat labs in 2 weeks.. ED course: Will advise clear liquid diet for the next 24 hours. 11/12 01:21 Order name: CBC with Diff; Complete Time: 04:49 cp 11/12 01:21 Order name: CMP; Complete Time: 04:49 cp 11/12 01:21 Order name: Lipase; Complete Time: 04:49 cp 11/12 01:21 Order name: Urinalysis w/ reflexes; Complete Time: 04:49 cp 11/12 01:27 Order name: CT Stone Protocol cp 11/12 01:21 Order name: IV Saline Lock; Complete Time: 03:03 cp 11/12 01:21 Order name: Labs collected and sent; Complete Time: 03:03 cp Administered Medications: 02:45 Drug: Ondansetron IVP 4 mg Route: IVP; Site: right hand; ha1 03:00 Follow up: Response: No adverse reaction; Nausea is decreased ha1 02:48 Drug: morphine IVP or IV 4 mg Route: IVP; Infused Over: 4 mins; Site: right hand; ha1 03:00 Follow up: Response: No adverse reaction; Pain is decreased; RASS: Alert and Calm (0) ha1 05:35 Drug: Gallant PO 10 mg-325 mg 1 tabs Route: PO; ha1 05:35 Drug: Cephalexin PO 500 mg Route: PO; ha1 05:50 Follow up: Response: No adverse reaction ha1 05:35 Drug: metroNIDAZOLE PO 500 mg Route: PO; ha1 05:50 Follow up: Response: No adverse reaction ha1 05:35 Drug: Promethazine PO 25 mg Route: PO; ha1 05:50 Follow up: Response: No adverse reaction ha1 05:35 Drug: Ibuprofen PO 800 mg Route: PO; ha1 05:50 Follow up: Response: No adverse reaction ha1 Disposition: 03:48 Co-signature as Attending Physician, Orville Tobias MD I agree with the assessment sp4 and plan of care. I reviewed the patient's care provided by Advanced Practice Provider \T\ agree w/ the diagnosis \T\ care plan. I personally saw the pt \T\ performed a substantive portion of the visit, incldng all aspects of the (History/Exam/Medical Decision Making). Disposition Summary: 11/12/22 05:24 Discharge Ordered Location: Home sp4 Problem: new sp4 Symptoms: have improved sp4 Condition: Stable sp4 Diagnosis - Acute epiploic appendagitis, acute mesenteric panniculitis, sp4 Followup: sp4 - With: Saima Good MD - When: 7 - 10 days - Reason: Recheck today's complaints Discharge Instructions: - Discharge Summary Sheet sp4 - Epiploic Appendagitis sp4 Forms: - Patient Portal Instructions sp4 Prescriptions: - Cephalexin 500 mg Oral Capsule - take 1 capsule by ORAL route every 8 hours for 10 days; 30 capsule; Refills: 0, sp4 Product Selection Permitted - Flagyl 500 mg Oral Tablet - take 1 tablet by ORAL route every 8 hours for 10 days; 30 tablet; Refills: 0, sp4 Product Selection Permitted - Ibuprofen 800 mg Oral Tablet - take 1 tablet by ORAL route every 8 hours As needed take with food; 30 tablet; sp4 Refills: 0, Product Selection Permitted - Tramadol 50 mg Oral Tablet - take 1 tablet by ORAL route every 8 hours as needed; 20 tablet; Refills: 0, sp4 Product Selection Permitted - promethazine 25 mg Oral Tablet - take 1 tablet by ORAL route every 6 hours As needed; 30 tablet; Refills: 0, sp4 Product Selection Permitted Signatures: Dispatcher [employer] EDMS Cedric Grimm PA PA cp Ayala, Heidy, RN RN [email or web address] Joelle Candelaria RN RN pf1 Orville Tobias MD MD sp4
--- NOTE | 2022-11-12 05:25 | ER ---
Nurse's Notes [facility] Name: Daryl Booth Age: 32 yrs Sex: Male : 1990 Arrival Date: 11/12/2022 Time: 00:28 Bed 13 Private MD: Diagnosis: Acute epiploic appendagitis, acute mesenteric panniculitis, Presentation: 11/12 00:50 Chief complaint: Patient states: LLQ abdominal pain,onset 3-4 days and epigastric pain pf1 of 10,onset 30 minutes ago with nausea. Patient stated was diagnosed with Covid-19 on 10/28/22. Coronavirus screen: Vaccine status: Patient reports receiving the 2nd dose of the covid vaccine. Client denies travel out of the [place] in the last 14 days. At this time, the client does not indicate any symptoms associated with coronavirus-19. Ebola Screen: Patient negative for fever greater than or equal to 101.5 degrees Fahrenheit, and additional compatible Ebola Virus Disease symptoms. Initial Sepsis Screen: Does the patient meet any 2 criteria? No. Patient's initial sepsis screen is negative. Does the patient have a suspected source of infection? No. Patient's initial sepsis screen is negative. Risk Assessment: Do you want to hurt yourself or someone else? Patient reports no desire to harm self or others. 00:50 Method Of Arrival: Ambulatory pf1 00:50 Acuity: GERI 3 pf1 Historical: - Allergies: 00:53 difluprednate; pf1 00:53 Hydroxychloroquine; pf1 - PMHx: 00:53 Anxiety; Depressive disorder; chronic pain; autism; pf1 00:56 kidney stone; pf1 - PSHx: 00:53 None; pf1 - Immunization history:: Adult Immunizations up to date, Client reports receiving the 2nd dose of the Covid vaccine, Last tetanus immunization: > 10 years ago Flu vaccine is not up to date. - Social history:: Smoking status: Patient denies any tobacco usage or history of. Patient uses alcohol, only on a social basis. Patient/guardian denies using street drugs. Screenin:57 [facility] ED Fall Risk Assessment (Adult) History of falling in the last 3 months, ha1 including since admission No falls in past 3 months (0 pts) Score/Fall Risk Level 0 - 2 = Low Risk Oriented to surroundings, Maintained a safe environment, Educated pt \T\ family on fall prevention, incl call for assistance when getting out of bed. Abuse screen: Denies threats or abuse. Denies injuries from another. Nutritional screening: No deficits noted. Tuberculosis screening: No symptoms or risk factors identified. Assessment: 02:30 General: Appears uncomfortable, Behavior is calm, cooperative. Pain: Complains of pain ha1 in back Pain radiates to pelvis Pain currently is 5 out of 10 on a pain scale. Quality of pain is described as pressure, throbbing. Neuro: Level of Consciousness is awake, alert, obeys commands, Oriented to person, place, time, situation. Cardiovascular: Patient's skin is warm and dry. Respiratory: Airway is patent Respiratory effort is even, unlabored, Respiratory pattern is regular, symmetrical. GI: Abdomen is round non-distended, Bowel sounds present X 4 quads. Abd is soft and non tender. 03:28 Reassessment: Patient and/or family updated on plan of care and expected duration. Pain ha1 level reassessed. Patient is alert, oriented x 3, equal unlabored respirations, skin warm/dry/pink. 03:30 Reassessment: Patient and/or family updated on plan of care and expected duration. Pain ha1 level reassessed. Patient is alert, oriented x 3, equal unlabored respirations, skin warm/dry/pink. Patient states feeling better. Patient states symptoms have improved. 04:30 Reassessment: Patient and/or family updated on plan of care and expected duration. Pain ha1 level reassessed. Patient is alert, oriented x 3, equal unlabored respirations, skin warm/dry/pink. 05:30 Reassessment: Patient and/or family updated on plan of care and expected duration. Pain ha1 level reassessed. Patient is alert, oriented x 3, equal unlabored respirations, skin warm/dry/pink. Patient denies pain at this time. Patient states feeling better. Patient states symptoms have improved. Vital Signs: 00:44 BP 132 / 83 RA Sitting (auto/reg); Pulse 87; Resp 16 S; Temp 98(O); Pulse Ox 99% on mb4 R/A; Weight 113.4 kg (R); Height 5 ft. 7 in. (R); Pain 4/10; 02:30 BP 119 / 72; Pulse 80; Resp 18 S; Pulse Ox 100% on R/A; ha1 03:20 BP 118 / 75; Pulse 82; Resp 18 S; Pulse Ox 99% on R/A; ha1 05:30 BP 120 / 70; Pulse 67; Resp 19 S; Pulse Ox 100% on R/A; ha1 00:44 Body Mass Index 39.16 (113.40 kg, 170.18 cm) mb4 00:44 Pain Scale: Adult mb4 ED Course: 00:30 Patient arrived in ED. kj1 00:31 Cedric Grimm PA is PHCP. cp 00:31 Orville Tobias MD is Attending Physician. cp 00:53 Triage completed. pf1 00:57 Arm band placed on right wrist. ha1 00:57 Patient has correct armband on for positive identification. Placed in gown. Bed in low ha1 position. Call light in reach. Side rails up X 1. 02:19 CT Stone Protocol In Process Unspecified. EDMS 02:24 Jzamín Mackenzie RN is Primary Nurse. ha1 02:45 Inserted saline lock: 22 gauge in right hand, using aseptic technique. Blood collected. ha1 03:03 CBC with Diff Sent. ha1 03:03 CMP Sent. ha1 03:03 Lipase Sent. ha1 03:03 Urinalysis w/ reflexes Sent. ha1 05:24 Saima Good MD is Referral Physician. sp4 05:50 No provider procedures requiring assistance completed. ha1 05:50 IV discontinued, intact, bleeding controlled, No redness/swelling at site. Pressure ha1 dressing applied. Administered Medications: 02:45 Drug: Ondansetron IVP 4 mg Route: IVP; Site: right hand; ha1 03:00 Follow up: Response: No adverse reaction; Nausea is decreased ha1 02:48 Drug: morphine IVP or IV 4 mg Route: IVP; Infused Over: 4 mins; Site: right hand; ha1 03:00 Follow up: Response: No adverse reaction; Pain is decreased; RASS: Alert and Calm (0) ha1 05:35 Drug: [place] PO 10 mg-325 mg 1 tabs Route: PO; ha1 05:35 Drug: Cephalexin PO 500 mg Route: PO; ha1 05:50 Follow up: Response: No adverse reaction ha1 05:35 Drug: metroNIDAZOLE PO 500 mg Route: PO; ha1 05:50 Follow up: Response: No adverse reaction ha1 05:35 Drug: Promethazine PO 25 mg Route: PO; ha1 05:50 Follow up: Response: No adverse reaction ha1 05:35 Drug: Ibuprofen PO 800 mg Route: PO; ha1 05:50 Follow up: Response: No adverse reaction ha1 Medication: 06:14 VIS not applicable for this client. ha1 Outcome: 05:24 Discharge ordered by . ruthy 05:50 Discharged to home ambulatory, with family. ha1 05:50 Condition: stable 05:50 Discharge instructions given to patient, family, Instructed on discharge instructions, follow up and referral plans. no driving heavy equipment, Demonstrated understanding of instructions, follow-up care, medications, Prescriptions given X 5 06:17 Patient left the ED. ha1 Signatures: Dispatcher [employer] EDMS Cedric Grimm PA PA cp Baxter, Mackenzie mb4 Barbara Dutton kj1 Jazmín Mackenzie RN RN ha1 Joelle Candelaria RN RN pf1 Orville Tobias MD MD sp4
[2022-11-12] MEDS ORDERED: PROMETHAZINE 25 MG TABLET ONE (05:59)
[2022-11-12] MEDS ORDERED: CEPHALEXIN 250 MG CAP ONE (06:00)
[2022-11-12] MEDS ORDERED: IBUPROFEN 400 MG TAB ONE (06:00)
[2022-11-12] MEDS ORDERED: HYDROCODONE/APAP 10/325 TAB ONE (06:00)
[2022-11-12] MEDS ORDERED: metroNIDAZOLE 500 MG TABLET ONE (06:02)
[2022-11-12 06:29] VITALS: TEMP 98
[2022-11-12 06:46] VITALS: BP 120/70; O2SAT 100
--- NOTE | 2022-11-12 12:00 | RAD REPORT ---
EXAM DESCRIPTION: CT - Stone Protocol - 11/12/2022 7:06 am CLINICAL HISTORY: FLANK PAIN TECHNIQUE: Axial computed tomography images of the abdomen and pelvis without intravenous contrast. Sagittal and coronal reformatted images were created and reviewed. This CT exam was performed usi ng one or more of the following dose reduction techniques: automated exposure control, adjustment o f the mA and/or kV according to patient size, and/or use of iterative reconstruction technique. COMPARISON: No relevant prior studies available. FINDINGS: Lung bases: Unremarkable. No mass. No consolidation. ABDOMEN: Liver: Unremarkable. Gallbladder and bile ducts: Unremarkable. No calcified stones. No ductal dilation. Pancreas: Unremarkable. No ductal dilation. Spleen: Unremarkable. No splenomegaly. Adrenals: Unremarkable. No mass. Kidneys and ureters: Punctate left renal calculus. No hydronephrosis. Stomach and bowel: There is a focus of extraluminal inflammation with central fat density abutting the distal descending colon. Moderate stool within the proximal to mid large bowel. No obstructio n. No appreciable mucosal thickening. PELVIS: Appendix: Normal caliber appendix. No findings to suggest acute appendicitis. Bladder: The urinary bladder is decompressed. No stones. Reproductive: Unremarkable as visualized. ABDOMEN and PELVIS: Intraperitoneal space: Unremarkable. No free air. No significant fluid collection. Bones/joints: No acute fracture. No dislocation. Soft tissues: Unremarkable. Vasculature: Unremarkable. No abdominal aortic aneurysm. Lymph nodes: Haziness within the central mesenteric fat with multiple subcentimeter lymph nodes. IMPRESSION: 1. There is a focus of extraluminal inflammation with central fat density abutting the distal descending colon. This is consistent with acute epiploic appendagitis. 2. Nonobstructive left renal calculus. 3. Haziness within the central mesenteric fat with multiple subcentimeter lymph nodes. This is a nonspecific finding which can be seen in the setting of mesenteric panniculitis. Follow-up is sugge sted in order to exclude lymphatic malignancy. 4. Other findings as above. Electronically signed by: Ladarius Casarez MD 11/12/2022 3:06 AM CDT Due to temporary technical issues with the PACS/Fluency reporting system, reports are being signed by the in house radiologist without review as a courtesy to ensure prompt reporting. The interpreting r adiologist is fully responsible for the content of the report.
== END 2022-11-12 06:17 | disposition home or self-care (01) ==
LOC: ER 00:28
DX: K65.4 Sclerosing mesenteritis (principal); K63.89 Other specified diseases of intestine; F84.0 Autistic disorder; Z87.442 Personal history of urinary calculi; Z88.8 Allergy status to other drugs, medicaments and biological substances
CPT/HCPCS: 85025; 36415; 81003; 83690; 80053; 76377; 74176; Q0169; J2405